=== PATIENT | female | born 1975 | race American Indian/Alaskan Native ===

== ENCOUNTER 2016-12-01 15:46 | Emergency (ER) | payer SELFPAY ==
[2016-12-01] MEDS ORDERED: TORADOL IM ONE (23:05)
[2016-12-01] MEDS ORDERED: FLEXERIL PO ONE (23:06)
--- NOTE | 2016-12-01 23:16 | XRay Report ---
FINAL REPORT PROCEDURE: XR KNEE 1-2V RT TECHNIQUE: RIGHT knee radiographs, AP and lateral views. CPT 14741 HISTORY: knee pain after fall COMPARISON: No prior studies are available for comparison. FINDINGS: Fracture (s) and/or Dislocation(s): None . Alignment: Normal . Joint space(s): Normal . Soft tissues: Normal . Bone mineralization: Mild degree osteophyte formation is noted involving tibial femoral and patellofemoral joints.. Foreign bodies: None . IMPRESSION: No acute fracture. Mild degree osteoarthritis.
--- NOTE | 2016-12-01 23:21 | Emergency Department Report ---
ED Lower Extremity HPI - General Chief Complaint: Fall Stated Complaint: FSLL, RIGHT KNEE SWOLLEN,PAIN Source: patient Mode of arrival: Ambulatory Limitations: No Limitations - History of Present Illness Initial Comments: 41 year old female presents to ED with right knee pain x5 days after mechanical fall. patient states she was working in yard when she fell and knee twisted the wrong way. patient is stable, neurologically intact and in no acute distress. patient is ambulatory. patient denies trauma to head or LOC. MD Complaint: knee injury -: Sudden, days(s) (5) Injury: Knee: Right Place: street/outdoors Severity: mild Improves With: immobilization Worsens With: weight bearing, movement Context: fall Associated Symptoms: swelling, able to partially bear weight. denies: numbness , tingling - Related Data Previous Rx's Medication Instructions Recorded Last Taken Type HYDROcodone/APAP 7.5-325 [[place] 1 each PO Q6HR PRN #12 tablet 11/16/14 Unknown Rx 7.5/325] Meloxicam [Mobic] 7.5 mg PO QDAY #5 tablet 12/02/16 Unknown Rx methOCARBAMOL [Robaxin TAB] 500 mg PO TID #15 tab 12/02/16 Unknown Rx Allergies Allergy/AdvReac Type Severity Reaction Status Date / Time Sulfa (Sulfonamide Allergy Rash Verified 11/16/14 01:01 Antibiotics) sulfamethoxazole Allergy Rash Verified 11/16/14 01:01 [From Bactrim] trimethoprim [From Bactrim] Allergy Rash Verified 11/16/14 01:01 ED Review of Systems ROS: Stated complaint: FSLL, RIGHT KNEE SWOLLEN,PAIN Other details as noted in HPI Constitutional: denies: chills, fever Eyes: denies: eye pain, eye discharge, vision change ENT: denies: ear pain, throat pain Respiratory: denies: cough, shortness of breath, wheezing Cardiovascular: denies: chest pain, palpitations Endocrine: no symptoms reported Gastrointestinal: denies: abdominal pain, nausea, diarrhea Genitourinary: denies: urgency, dysuria, discharge Musculoskeletal: joint swelling, arthralgia. denies: back pain Skin: denies: rash, lesions Neurological: denies: headache, weakness, paresthesias Psychiatric: denies: anxiety, depression Hematological/Lymphatic: denies: easy bleeding, easy bruising ED Past Medical Hx - Past Medical History Previous Medical History?: Yes Hx Hypertension: Yes - Surgical History Past Surgical History?: No - Social History Smoking Status: Current Every Day Smoker Substance Use Type: Prescribed - Medications Home Medications: Home Medications Medication Instructions Recorded Confirmed Last Taken Type HYDROcodone/APAP 7.5-325 [[place] 1 each PO Q6HR PRN #12 tablet 11/16/14 Unknown Rx 7.5/325] Meloxicam [Mobic] 7.5 mg PO QDAY #5 tablet 12/02/16 Unknown Rx methOCARBAMOL [Robaxin TAB] 500 mg PO TID #15 tab 12/02/16 Unknown Rx ED Physical Exam - General Limitations: No Limitations General appearance: alert, in no apparent distress - Head Head exam: Present: atraumatic, normocephalic - Eye Eye exam: Present: normal appearance, EOMI - ENT ENT exam: Present: normal exam, mucous membranes moist - Neck Neck exam: Present: normal inspection, full ROM - Respiratory Respiratory exam: Present: normal lung sounds bilaterally. Absent: respiratory distress, wheezes, rales - Cardiovascular Cardiovascular Exam: Present: regular rate, normal rhythm. Absent: systolic murmur, diastolic murmur, rubs, gallop - GI/Abdominal GI/Abdominal exam: Present: soft, normal bowel sounds. Absent: distended, tenderness, guarding - Extremities Exam Extremities exam: Present: normal inspection, tenderness (mild tenderness to right knee), normal capillary refill. Absent: joint swelling - Back Exam Back exam: Present: normal inspection, full ROM - Neurological Exam Neurological exam: Present: alert, oriented X3 - Psychiatric Psychiatric exam: Present: normal affect, normal mood - Skin Skin exam: Present: warm, dry, intact, normal color. Absent: rash ED Course Vital Signs 12/01/16 18:31 Temperature 98.6 F Pulse Rate 61 Respiratory 20 Rate Blood Pressure 123/71 O2 Sat by Pulse 100 Oximetry ED Lower Extremity MDM - Radiology Data Radiology results: report reviewed XR right knee No acute fracture. Mild arthritis. - Medical Decision Making 41 year old female presents to ED with anterior/medial right knee pain after mechanical fall. patient has had medications during ED visit and has decreased pain. patient will be given knee immobilizer and referral to Dr. Ramos. patient is stable, neurologically intact and in no acute distress. patient is ambulatory. Critical care attestation.: If time is entered above; I have spent that time in minutes in the direct care of this critically ill patient, excluding procedure time. ED Disposition Clinical Impression: Arthritis of knee, right Acute knee pain Qualifiers: Laterality: right Qualified Code(s): M25.561 - Pain in right knee Disposition: - TO HOME OR SELFCARE Is pt being admited?: No Does the pt Need Aspirin: No Condition: Stable Instructions: Fall Prevention (ED) Prescriptions: Meloxicam [Mobic] 7.5 mg PO QDAY #5 tablet methOCARBAMOL [Robaxin TAB] 500 mg PO TID #15 tab Referrals: PRIMARY CAREMD [Primary Care Provider] - 3-5 Days VIDHI RAMOS MD [Staff Physician] - 2-3 Days Forms: Work/School Release Form(ED)
[2016-12-02 01:59] VITALS: BP 145/82
== END 2016-12-02 00:25 | disposition home or self-care (01) ==
LOC: ED 15:46
DX: M17.11 Unilateral primary osteoarthritis, right knee (principal); I10 Essential (primary) hypertension; F17.210 Nicotine dependence, cigarettes, uncomplicated; Z88.1 Allergy status to other antibiotic agents; Z88.2 Allergy status to sulfonamides
CPT/HCPCS: 29505; 73560; 96372; 99283; J1885

== ENCOUNTER 2017-02-21 03:00 | Emergency (ER) | payer OTHER ==
[2017-02-21] MEDS ORDERED: NACL 0.9% 500 ML 500 ML IV ONE (03:35)
[2017-02-21] MEDS ORDERED: ZOFRAN ONE (03:58)
[2017-02-21] MEDS ORDERED: TYLENOL PO ONE ×2 (03:58→09:00)
[2017-02-21] MEDS ORDERED: TYLENOL ONE (03:58)
[2017-02-21] MEDS ORDERED: NACL 0.9% 1000 ML 1,000 ML ONE (03:59)
[2017-02-21] MEDS ORDERED: ZOFRAN IV ONE (04:02)
[2017-02-21 04:12] LABS: Basophils % (Auto) 0.5 % (0.0-1.8); Eosinophils % (Auto) 1.9 % (0.0-4.3); Hematocrit 45.4 % (30.3-42.9); Hemoglobin 15.7 gm/dl (10.1-14.3); Mean Corpuscular HGB Conc 34 % (30-34); Mean Corpuscular Hemoglobin 33 pg (28-32); Mean Corpuscular Volume 97 fl (79-97); Platelet Count 252 K/mm3 (140-440); Red Cell Distribution Width 12.4 % (13.2-15.2); White Blood Count 11.1 K/mm3 (4.5-11.0)
--- NOTE | 2017-02-21 04:19 | XRay Report ---
FINAL REPORT EXAM: XR CHEST 1V AP HISTORY: possible Sepsis TECHNIQUE: AP portable view(s) of the chest obtained. PRIORS: None. FINDINGS: No mediastinal shift. Cardiac silhouette is not enlarged. No pneumothorax, effusion, or focal pulmonary opacity identified. No acute skeletal findings. IMPRESSION: No acute pulmonary finding identified.
[2017-02-21 04:25] LABS: INR 0.97 (0.87-1.13)
[2017-02-21 05:04] LABS: Alanine Aminotransferase 19 units/L (7-56); Albumin 4.2 g/dL (3.9-5); Albumin/Globulin Ratio 1.2 %; Alkaline Phosphatase 68 units/L (35-129); Anion Gap 21 mmol/L; BUN/Creatinine Ratio 12; Blood Urea Nitrogen 13 mg/dL (7-17); Calcium 9.2 mg/dL (8.4-10.2); Carbon Dioxide 21 mmol/L (22-30); Chloride 98.7 mmol/L (98-107); Glucose 159 mg/dL (65-100); Potassium 4.1 mmol/L (3.6-5.0); Sodium 137 mmol/L (137-145); Total Protein 7.6 g/dL (6.3-8.2)
[2017-02-21 07:57] LABS: Bacteria,Urine 1+ /HPF (Negative); Bilirubin,Urine NEG (Negative); Blood,Urine SM (Negative); Ketones,Urine NEG (Negative); Leukocyte Esterase,Urine NEG (Negative); Nitrite,Urine NEG (Negative); Protein,Urine <15 mg/dL mg/dL (Negative); Urobilinogen,Urine < 2.0 mg/dL (<2.0)
[2017-02-21] MEDS ORDERED: TORADOL IV ONE (08:59)
[2017-02-21] MEDS ORDERED: NACL 0.9% 1000 ML 2,000 ML IV ONE (08:59)
--- NOTE | 2017-02-21 09:00 | Emergency Department Report ---
ED General Adult HPI - General Chief complaint: Fever Stated complaint: DIZZINESS,FEVER,VOMITING Time Seen by Provider: 02/21/17 08:50 Source: patient, RN notes reviewed Mode of arrival: Ambulatory Limitations: No Limitations - History of Present Illness Initial comments: This is a 41-year-old female. The patient is previously known to this provider. Her primary care doctor or his Dr. Maza in the [facility], and she reports a history of hypertension. Patient presents to the ER with complaint of nausea, vomiting, fever. Fever was 101-103 yesterday. She describes nonbloody, nonbilious emesis 2. Patient denies irritative and obstructive urinary symptoms, admits to cough which occasionally has mucus and occasionally does not. There is no sore throat, there is no neck stiffness, there is no abdominal pain. Patient to me denies any complaints of dizziness or ataxia. Patient medicated with IV fluids, and acetaminophen prior to my arrival, and she reports this dramatically improved her symptoms. She reports that she did get her flu shot. 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 -: Gradual, days(s) Severity scale (0 -10): 8 Consistency: intermittent Improves with: medication Worsens with: movement Associated Symptoms: cough, fever/chills, nausea/vomiting, weakness. denies: confusion, chest pain, loss of appetite, malaise, rash, seizure, shortness of breath, syncope - Related Data Previous Rx's Medication Instructions Recorded Last Taken Type HYDROcodone/APAP 7.5-325 [[place] 1 each PO Q6HR PRN #12 tablet 11/16/14 Unknown Rx 7.5/325] Meloxicam [Mobic] 7.5 mg PO QDAY #5 tablet 12/02/16 Unknown Rx methOCARBAMOL [Robaxin TAB] 500 mg PO TID #15 tab 12/02/16 Unknown Rx Acetaminophen [Tylenol Arthritis] 650 mg PO Q6HR PRN #30 tablet.er 02/21/17 Unknown Rx Ibuprofen [Motrin] 600 mg PO Q8H PRN #30 tablet 02/21/17 Unknown Rx Ondansetron [Zofran Odt] 4 mg PO Q8HR PRN #20 tab.rapdis 02/21/17 Unknown Rx Allergies Allergy/AdvReac Type Severity Reaction Status Date / Time Sulfa (Sulfonamide Allergy Rash Verified 11/16/14 01:01 Antibiotics) sulfamethoxazole Allergy Rash Verified 11/16/14 01:01 [From Bactrim] trimethoprim [From Bactrim] Allergy Rash Verified 11/16/14 01:01 ED Review of Systems ROS: Stated complaint: DIZZINESS,FEVER,VOMITING Other details as noted in HPI ED Past Medical Hx - Past Medical History Previous Medical History?: Yes Hx Hypertension: Yes - Social History Smoking Status: Never Smoker - Medications Home Medications: Home Medications Medication Instructions Recorded Confirmed Last Taken Type HYDROcodone/APAP 7.5-325 [[place] 1 each PO Q6HR PRN #12 tablet 11/16/14 Unknown Rx 7.5/325] Meloxicam [Mobic] 7.5 mg PO QDAY #5 tablet 12/02/16 Unknown Rx methOCARBAMOL [Robaxin TAB] 500 mg PO TID #15 tab 12/02/16 Unknown Rx Acetaminophen [Tylenol Arthritis] 650 mg PO Q6HR PRN #30 tablet.er 02/21/17 Unknown Rx Ibuprofen [Motrin] 600 mg PO Q8H PRN #30 tablet 02/21/17 Unknown Rx Ondansetron [Zofran Odt] 4 mg PO Q8HR PRN #20 tab.rapdis 02/21/17 Unknown Rx ED Physical Exam - General Limitations: No Limitations General appearance: alert, in no apparent distress - Head Head exam: Present: atraumatic, normocephalic - Eye Eye exam: Present: normal appearance, PERRL, EOMI. Absent: nystagmus - ENT ENT exam: Present: normal exam, normal orophraynx, mucous membranes moist, TM's normal bilaterally, normal external ear exam - Neck Neck exam: Present: normal inspection, full ROM. Absent: tenderness, meningismus - Respiratory Respiratory exam: Present: normal lung sounds bilaterally. Absent: respiratory distress, wheezes, rales, rhonchi, stridor, chest wall tenderness, accessory muscle use, decreased breath sounds, prolonged expiratory - Cardiovascular Cardiovascular Exam: Present: regular rate, normal rhythm, normal heart sounds. Absent: bradycardia, tachycardia, irregular rhythm, systolic murmur, diastolic murmur, rubs, gallop - GI/Abdominal GI/Abdominal exam: Present: soft, normal bowel sounds. Absent: distended, tenderness, guarding, rebound, rigid, pulsatile mass - Extremities Exam Extremities exam: Present: normal inspection, full ROM, normal capillary refill. Absent: tenderness, pedal edema, joint swelling, calf tenderness - Back Exam Back exam: Present: normal inspection, full ROM. Absent: tenderness, CVA tenderness (R), paraspinal tenderness, vertebral tenderness - Neurological Exam Neurological exam: Present: alert, oriented X3, CN II-XII intact, normal gait, other (Extraocular movements intact. Tongue midline. No facial droop. Facial sensation intact to light touch in the V1, V2, V3 distribution bilaterally. 5 and 5 strength in 4 extremities.. Sensation is intact to light touch in 4 extremities.). Absent: motor sensory deficit - Psychiatric Psychiatric exam: Present: normal affect, normal mood - Skin Skin exam: Present: warm, dry, intact, normal color. Absent: rash ED Course Vital Signs 02/21/17 02/21/17 02/21/17 03:17 03:29 04:00 Temperature 103.4 F H 103.4 F H Pulse Rate 114 H 111 H Respiratory 18 18 22 Rate Blood Pressure 110/70 110/70 Blood Pressure [Left] O2 Sat by Pulse 98 98 Oximetry 02/21/17 02/21/17 02/21/17 05:00 06:00 09:19 Temperature 101.0 F H 98.2 F Pulse Rate 100 H 88 Respiratory 22 14 Rate Blood Pressure Blood Pressure 116/69 [Left] O2 Sat by Pulse 100 Oximetry 02/21/17 10:34 Temperature 98.0 F Pulse Rate 93 H Respiratory 16 Rate Blood Pressure Blood Pressure 121/77 [Left] O2 Sat by Pulse 100 Oximetry ED Medical Decision Making - Lab Data Result diagrams: 02/21/17 03:47 02/21/17 03:47 Vital Signs 02/21/17 02/21/17 02/21/17 03:17 03:29 04:00 Temperature 103.4 F H 103.4 F H Pulse Rate 114 H 111 H Respiratory 18 18 22 Rate Blood Pressure 110/70 110/70 Blood Pressure [Left] O2 Sat by Pulse 98 98 Oximetry 02/21/17 02/21/17 02/21/17 05:00 06:00 09:19 Temperature 101.0 F H 98.2 F Pulse Rate 100 H 88 Respiratory 22 14 Rate Blood Pressure Blood Pressure 116/69 [Left] O2 Sat by Pulse 100 Oximetry Temp Pulse Resp BP Pulse Ox 98.2 F 88 14 116/69 100 02/21/17 09:19 02/21/17 09:19 02/21/17 09:19 02/21/17 09:19 02/21/17 09:19 Labs 02/21/17 02/21/17 02/21/17 03:47 03:47 03:47 WBC 11.1 H RBC 4.70 Hgb 15.7 H Hct 45.4 H MCV 97 MCH 33 H MCHC 34 RDW 12.4 L Plt Count 252 Lymph % (Auto) 12.7 L [place] % (Auto) 5.2 Eos % (Auto) 1.9 Baso % (Auto) 0.5 Lymph # 1.4 [place] # 0.6 Eos # 0.2 Baso # 0.1 Seg Neutrophils % 79.7 H Seg Neutrophils # 8.8 H PT 13.4 INR 0.97 VBG pH Sodium 137 Potassium 4.1 Chloride 98.7 Carbon Dioxide 21 L Anion Gap 21 BUN 13 Creatinine 1.1 Estimated GFR > 60 BUN/Creatinine Ratio 12 Glucose 159 H Lactic Acid Calcium 9.2 Total Bilirubin 0.60 AST 19 ALT 19 Alkaline Phosphatase 68 Total Protein 7.6 Albumin 4.2 Albumin/Globulin Ratio 1.2 Urine Color Urine Turbidity Urine pH Ur Specific [place] Urine Protein Urine Glucose (UA) Urine Ketones Urine Blood Urine Nitrite Urine Bilirubin Urine Urobilinogen Ur Leukocyte Esterase Urine WBC (Auto) Urine RBC (Auto) U Epithel Cells (Auto) Urine Bacteria (Auto) 02/21/17 02/21/17 02/21/17 03:47 03:47 06:12 WBC RBC Hgb Hct MCV MCH MCHC RDW Plt Count Lymph % (Auto) [place] % (Auto) Eos % (Auto) Baso % (Auto) Lymph # [place] # Eos # Baso # Seg Neutrophils % Seg Neutrophils # PT INR VBG pH 7.489 H Sodium Potassium Chloride Carbon Dioxide Anion Gap BUN Creatinine Estimated GFR BUN/Creatinine Ratio Glucose Lactic Acid 3.00 H* 1.50 Calcium Total Bilirubin AST ALT Alkaline Phosphatase Total Protein Albumin Albumin/Globulin Ratio Urine Color Urine Turbidity Urine pH Ur Specific [place] Urine Protein Urine Glucose (UA) Urine Ketones Urine Blood Urine Nitrite Urine Bilirubin Urine Urobilinogen Ur Leukocyte Esterase Urine WBC (Auto) Urine RBC (Auto) U Epithel Cells (Auto) Urine Bacteria (Auto) 02/21/17 07:21 WBC RBC Hgb Hct MCV MCH MCHC RDW Plt Count Lymph % (Auto) [place] % (Auto) Eos % (Auto) Baso % (Auto) Lymph # [place] # Eos # Baso # Seg Neutrophils % Seg Neutrophils # PT INR VBG pH Sodium Potassium Chloride Carbon Dioxide Anion Gap BUN Creatinine Estimated GFR BUN/Creatinine Ratio Glucose Lactic Acid Calcium Total Bilirubin AST ALT Alkaline Phosphatase Total Protein Albumin Albumin/Globulin Ratio Urine Color Yellow Urine Turbidity Clear Urine pH 6.0 Ur Specific [place] 1.014 Urine Protein <15 mg/dl Urine Glucose (UA) Neg Urine Ketones Neg Urine Blood Sm Urine Nitrite Neg Urine Bilirubin Neg Urine Urobilinogen < 2.0 Ur Leukocyte Esterase Neg Urine WBC (Auto) 1.0 Urine RBC (Auto) 3.0 U Epithel Cells (Auto) < 1.0 Urine Bacteria (Auto) 1+ - EKG Data 02/21/17 10:14 Sinus tachycardia, 160 bpm, normal axis, but morphologically consistent with ST elevation myocardial infarction - Radiology Data Radiology results: report reviewed, image reviewed X-ray the chest is negative for acute disease - Medical Decision Making Differential diagnosis, including but not limited to: Viral syndrome, pneumonia , urinary tract infection, influenza, influenza-like illness Assessment and plan: 41-year-old female who presents with an acute febrile illness, multiple sick contacts at home and at work with similar cold-like symptoms, body aches, clinical history is consistent with influenza-like illness. Code sepsis is called prior to my evaluating the patient, therefore blood cultures were ordered. Patient was initially tachycardic, febrile, and had elevated lactic acid, and all of these abnormalities improved with appropriate supportive care. Patient denies IV drug use, prosthetic heart, recent dental procedure, recent surgical procedure, therefore think bacteremia/ invasive bacterial infection is very unlikely. Her tachycardia resolved, her fever resolved, she is able to walk with a steady gait, there is no neck pain and there is no neck stiffness, the patient appears to be clinically improved. Patient will be discharged with supportive care symptomatic therapy, and she is instructed to return in 48-72 hours for repeat check/evaluation. Based on my evaluation, I think it is very unlikely that the patient has bacteremia, I do not believe that based on the objective evidence at this time that she requires hospitalization or broad-spectrum IV antibiotics. Critical care attestation.: If time is entered above; I have spent that time in minutes in the direct care of this critically ill patient, excluding procedure time. ED Disposition Clinical Impression: Acute febrile illness Disposition: DC-01 TO HOME OR SELFCARE Is pt being admited?: No Does the pt Need Aspirin: No Condition: Stable Instructions: Influenza (ED) Additional Instructions: Cultures were sent today, results will be available in the next 3-5 days. Have a primary care doctor contact the medical records department to obtain culture results. Return in 48-72 hours for a repeat checkup/evaluation. Return to the ER right away with , lethargy, irritability, projectile vomiting, change in mental status, confusion, inability to tolerate liquid feeds, severe chest pain , severe abdominal pain. It is very important to follow-up in the next 2-3 days for repeat checkup/evaluation to assess for progression, if any of the current disease state. However, symptoms most likely coming from cold/influenza -like illness. Prescriptions: Acetaminophen [Tylenol Arthritis] 650 mg PO Q6HR PRN #30 tablet.er PRN Reason: Pain Ibuprofen [Motrin] 600 mg PO Q8H PRN #30 tablet PRN Reason: Pain Ondansetron [Zofran Odt] 4 mg PO Q8HR PRN #20 tab.rapdis PRN Reason: Nausea Referrals: JENNIFER EUBANKS MD [Primary Care Provider] - 3-5 Days [facility] [Provider Group] - 3-5 Days Forms: Work/School Release Form(ED)
[2017-02-21 10:35] VITALS: BP 121/77
== END 2017-02-21 10:36 | disposition home or self-care (01) ==
LOC: ED 03:00
DX: R50.9 Fever, unspecified (principal); R11.2 Nausea with vomiting, unspecified; R53.1 Weakness; R05 Cough; I10 Essential (primary) hypertension; Z88.2 Allergy status to sulfonamides
CPT/HCPCS: 36415; 71010; 80053; 81001; 82140; 82805; 85025; 85610; 87040; 87086; 87400; 93005; 93010; 96361; 96374; 96375; 99284; J1885; J2405; J7030

== ENCOUNTER 2017-06-17 15:00 | Emergency (ER) | payer SELFPAY ==
[2017-06-17 15:26] VITALS: BP 117/68
[2017-06-17] MEDS ORDERED: FIORICET PO ONE (16:44)
[2017-06-17] MEDS ORDERED: TORADOL IM ONE (16:44)
--- NOTE | 2017-06-17 16:54 | Emergency Department Report ---
HPI - General Chief Complaint: Earache Time Seen by Provider: 06/17/17 16:20 - HPI HPI: The patient's 42-year-old female who presents for evaluation of headache and dizziness. The patient reports headache for the past 2 days, waxing and waning , currently moderate in severity, aching in quality, exacerbated with bright lights. She states that her headache is not the worse headache of her life, it is consistent with previous migraine headaches. She also has experienced mild intermittent dizziness elicited with position changes and improved with sitting down and rest. She has a tertiary complaint of pain in the ears bilaterally, also for the past 2-3 days. The patient denies fever, head injury, neck pain, neck stiffness, chest pain, dyspnea, abdominal pain, vomiting, vision or hearing changes, smell or taste changes, paresthesias, facial drooping, slurred speech, seizure-like activity, urine or bowel incontinence or retention, or other focal neurological deficit. ED Past Medical Hx - Past Medical History Hx Hypertension: Yes - Surgical History Past Surgical History?: No - Social History Smoking Status: Never Smoker Substance Use Type: None - Medications Home Medications: Home Medications Medication Instructions Recorded Confirmed Last Taken Type HYDROcodone/APAP 7.5-325 [[place] 1 each PO Q6HR PRN #12 tablet 11/16/14 Unknown Rx 7.5/325] Meloxicam [Mobic] 7.5 mg PO QDAY #5 tablet 12/02/16 Unknown Rx methOCARBAMOL [Robaxin TAB] 500 mg PO TID #15 tab 12/02/16 Unknown Rx Acetaminophen [Tylenol Arthritis] 650 mg PO Q6HR PRN #30 tablet.er 02/21/17 Unknown Rx Ibuprofen [Motrin] 600 mg PO Q8H PRN #30 tablet 02/21/17 Unknown Rx Ondansetron [Zofran Odt] 4 mg PO Q8HR PRN #20 tab.rapdis 02/21/17 Unknown Rx Butalb/Acetaminophen/Caffeine 1 cap PO Q6HR PRN #20 cap 06/17/17 Unknown Rx [Fioricet 50-300-40 mg CAP] Cephalexin [Keflex] 500 mg PO QID #20 capsule 06/17/17 Unknown Rx Ibuprofen [Motrin] 800 mg PO Q8HR PRN #15 tablet 06/17/17 Unknown Rx Meclizine [Antivert] 25 mg PO TID PRN #20 tablet 06/17/17 Unknown Rx ED Review of Systems ROS: Stated complaint: HEADACHE Other details as noted in HPI Constitutional: Reports dizziness denies: fever ENT: denies: throat or neck pain, reports her pain Respiratory: denies: cough, shortness of breath Cardiovascular: denies: chest pain Endocrine: denies unexplained weight loss or gain Gastrointestinal: denies: abdominal pain, nausea Genitourinary: denies: dysuria Musculoskeletal: denies: leg swelling Skin: denies: rash Neurological: reports: headache Hematological/Lymphatic: denies: easy bleeding or easy bruising Psych: denies sadness or hopelessness Physical Exam - Physical Exam Vital Signs: Vital Signs 06/17/17 15:23 Temperature 98.6 F Pulse Rate 62 Respiratory 16 Rate Blood Pressure 117/68 O2 Sat by Pulse 99 Oximetry Physical Exam: General: well-nourished, well-developed, no acute distress Head: Normocephalic, atraumatic Eyes: normal sclera ENT: Mucous membranes are pale and dry, normal tympanic membranes bilaterally, no tenderness, no middle ear effusion, no redness, swelling, warmth, or fluctuance overlying the mastoids bilaterally Neck: trachea midline, neck supple, No neck stiffness, no cervical adenopathy Respiratory: Breath sounds equal bilaterally, no wheezing, rales, or rhonchi Cardio: S1 and S2 present, no murmurs, rubs, gallops, capillary refill is delayed Abdomen: Normoactive bowel sounds, soft abdomen, no tenderness, 2-3 cm circular area of erythema present to the lower midline abdominal wall, no fluctuance, swelling, or crepitus, no abscess at this time Musc: No pitting edema Skin: No rash Neuro: alert oriented x4, normal cognition, speech normal, PERRL, EOM intact, no facial drooping, no uvula or tongue deviation on protrusion, no deficit with rotation of neck or shoulder shrug, no obvious gross motor deficit in the upper or lower extremities with flexion or extension at the shoulder, elbow, wrist, hip, knee, or ankle bilaterally, no obvious gross sensation deficit to crude touch or 2 pt discrimination, 2+ symmetric reflexes on DTR testing, no coordination deficit with [id number] or [id number] testing, Babinski downgoing, romberg negative, patient able to to ambulate without abnormal gait Psych: Normal affect ED Course Vital Signs 06/17/17 15:23 Temperature 98.6 F Pulse Rate 62 Respiratory 16 Rate Blood Pressure 117/68 O2 Sat by Pulse 99 Oximetry ED Medical Decision Making - Medical Decision Making The patient was seen and examined by myself. The patient is placed on a performance makeup artist and continuous pulse ox. On initial evaluation, the patient was found to be in no distress. As there are no neuro deficits or other findings on examination concerning for acute intracranial disease process, and as the patient states that symptoms are consistent with previous headaches, a CAT scan of the head will not be obtained at this time. The patient was given pain medicine for her headache. EKG is negative for arrhythmia or other concerning findings. The patient was reevaluated and reported that their symptoms were markedly improved. The patient is stable for discharge with outpatient follow- up. The patient is given follow-up and return instructions. The patient expressed understanding and agreed with the plan. The patient is discharged in stable condition. Critical care attestation.: If time is entered above; I have spent that time in minutes in the direct care of this critically ill patient, excluding procedure time. ED Disposition Clinical Impression: Acute non intractable tension-type headache, Orthostatic dizziness, Earache symptoms in both ears Disposition: DC-01 TO HOME OR SELFCARE Is pt being admited?: No Does the pt Need Aspirin: No Condition: Stable Instructions: Migraine Headache (ED), Acute Headache (ED), Lightheadedness (ED) , Vertigo (ED), Cellulitis (ED), Earache (ED) Referrals: JENNIFER EUBANKS MD [Primary Care Provider] - 3-5 Days Time of Disposition: 16:46
== END 2017-06-17 17:13 | disposition home or self-care (01) ==
LOC: ED 15:00
DX: G44.209 Tension-type headache, unspecified, not intractable (principal); R42 Dizziness and giddiness; H92.03 Otalgia, bilateral; I10 Essential (primary) hypertension; Z88.2 Allergy status to sulfonamides
CPT/HCPCS: 93005; 93010; 96372; 99283; J1885

== ENCOUNTER 2019-04-16 03:53 | Outpatient (CLI) | payer OTHER ==
[2019-04-16] MEDS ORDERED: LACTATED RINGERS 1,000 ML ONE (04:19)
[2019-04-16] MEDS ORDERED: LACTATED RINGERS 1,000 ML IV ONE (05:23)
[2019-04-16] MEDS ORDERED: TERBUTALINE 1 MG/1 ML INJ SUB-Q PRN (06:20)
[2019-04-16] MEDS ORDERED: LACTATED RINGERS 1,000 ML IV SCH (06:41)
[2019-04-16 06:43] LABS: Bilirubin,Urine NEG (Negative); Blood,Urine NEG (Negative); Color,Urine Yellow (Yellow); Mucus,Urine FEW /HPF; Protein,Urine <15 mg/dL mg/dL (Negative); Urobilinogen,Urine < 2.0 mg/dL (<2.0)
[2019-04-16] MEDS: TERBUTALINE 1 MG/1 ML INJ SUB-Q SCH ×2 (07:57→08:53)
[2019-04-16] MEDS ORDERED: ONDANSETRON 4 MG/2 ML INJ IV PRN (08:00)
[2019-04-16 08:51] VITALS: BP 124/73
== END 2019-04-16 09:41 | disposition home or self-care (01) ==
LOC: TRG 03:53
PROVIDERS: ATTEND Obstetrics & Gynecology
DX: O21.2 Late vomiting of pregnancy (principal); O26.893 Other specified pregnancy related conditions, third trimester; R10.9 Unspecified abdominal pain; M54.9 Dorsalgia, unspecified; O10.913 Unspecified pre-existing hypertension complicating pregnancy, third trimester; O47.03 False labor before 37 completed weeks of gestation, third trimester; Z87.891 Personal history of nicotine dependence; Z3A.33 33 weeks gestation of pregnancy
CPT/HCPCS: 59025; 81001; 96361; 96365; 96366; 96372; J2405; J3105; J7120; 96360

== ENCOUNTER 2019-05-09 09:28 | Outpatient (CLI) | payer OTHER ==
[2019-05-09 11:53] VITALS: BP 141/86
== END 2019-05-09 12:14 | disposition home or self-care (01) ==
LOC: TRG 09:28
PROVIDERS: ATTEND Obstetrics & Gynecology
DX: O47.1 False labor at or after 37 completed weeks of gestation (principal); Z3A.37 37 weeks gestation of pregnancy
CPT/HCPCS: 59025

== ENCOUNTER 2019-07-26 09:57 | Outpatient (CLI) | payer OTHER ==
--- NOTE | 2019-07-27 09:18 | Mammography Report ---
DIGITAL SCREENING MAMMOGRAM WITH CAD, 07/26/2019 INDICATION: Routine screening mammography. TECHNIQUE: Digital bilateral 2D mammography was obtained in the craniocaudal and mediolateral obliq ue projections. This examination was interpreted with the benefit of Computer-Aided Detection analysi s. COMPARISON: 08/01/2018, 07/10/2018 FINDINGS: Breast Density: The breasts are heterogeneously dense, which may obscure small masses. There is no evidence of dominant mass, suspicious calcifications or architectural distortion in eithe r breast. IMPRESSION: Follow up recommendation: Routine yearly BI-RADS Category 1: Negative. A "normal" or negative report should not discourage follow up or biopsy of a clinically significant f inding. A written summary of these findings will be mailed to the patient. The patient will be entered into a mammography reporting system which will generate a reminder letter for the patient's next appointmen t at the appropriate interval. The [employer] recommends yearly mammograms starting at age 40 and continuing as l camacho as a woman is in good health. Breast MRI is recommended for women with an approximate 20-25% or greater lifetime risk of breast cancer, including women with a strong family history of breast or ova cristin cancer or who have been treated for Hodgkin's disease. Signer Name: Segun Tapia MD Signed: 07/27/2019 9:14 AM Workstation Name: [id number]
== END 2019-07-26 09:58 | disposition home or self-care (01) ==
LOC: SPVWC 09:57
PROVIDERS: ATTEND Physician Assistant
DX: Z12.31 Encounter for screening mammogram for malignant neoplasm of breast (principal)
CPT/HCPCS: 77067

== ENCOUNTER 2020-12-10 10:05 | Outpatient (CLI) | payer OTHER ==
--- NOTE | 2020-12-10 14:09 | Mammography Report ---
DIGITAL SCREENING MAMMOGRAM WITH CAD, 12/10/2020 CLINICAL INFORMATION / INDICATION: Routine screening mammography. TECHNIQUE: Digital bilateral 2D mammography was obtained in the craniocaudal and mediolateral obliqu e projections. This examination was interpreted with the benefit of Computer-Aided Detection analysis . COMPARISON: 07/10/2018 FINDINGS: Breast Density: The breasts are heterogeneously dense, which may obscure small masses. No dominant mass, suspicious calcifications, or architectural distortion in either breast. No interval change. IMPRESSION: No mammographic evidence of malignancy. Follow up recommendation: Routine yearly BI-RADS Category 1: Negative. A "normal" or negative report should not discourage follow up or biopsy of a clinically significant f inding. A written summary of these findings will be mailed to the patient. The patient will be entered into a mammography reporting system which will generate a reminder letter for the patient's next appointmen t at the appropriate interval. The [employer] recommends yearly mammograms starting at age 40 and continuing as l camacho as a woman is in good health. Breast MRI is recommended for women with an approximate 20-25% or greater lifetime risk of breast cancer, including women with a strong family history of breast or ova cristin cancer or who have been treated for Hodgkin's disease. Signer Name: Ronda Pearson MD Signed: 12/10/2020 2:04 PM Workstation Name: [id number]
== END 2020-12-10 10:06 | disposition home or self-care (01) ==
LOC: SPVWC 10:05
PROVIDERS: ATTEND Advanced Practice Midwife
DX: Z12.31 Encounter for screening mammogram for malignant neoplasm of breast (principal)
CPT/HCPCS: 77063; 77067